=== PATIENT | female | born 1965 | race African-American/Black ===

== ENCOUNTER 2017-02-25 19:07 | Emergency (ER) | payer BC, SELFPAY ==
[2017-02-25] MEDS ORDERED: Ketorolac Tromethamine 30 MG/ML VIAL ONE (19:21)
== END 2017-02-25 19:40 | disposition home or self-care (01) ==
LOC: ERS 19:07
DX: G89.29 Other chronic pain (principal); M25.562 Pain in left knee; E78.5 Hyperlipidemia, unspecified; I10 Essential (primary) hypertension
CPT/HCPCS: 96372; J1885

== ENCOUNTER 2017-12-25 14:09 | Outpatient (CLI) | payer BC | END 2017-12-25 14:10 | disposition home or self-care (01) | LOC: BICMAMMO 14:09 | PROVIDERS: ATTEND Family Medicine | DX: Z12.31 Encounter for screening mammogram for malignant neoplasm of breast (principal); R92.1 Mammographic calcification found on diagnostic imaging of breast | CPT/HCPCS: 77063; 77067 ==

== ENCOUNTER 2018-07-30 06:13 | Emergency (ER) | payer BC ==
[2018-07-30] MEDS ORDERED: Dexamethasone 10 MG/ML VIAL ONE (06:39)
== END 2018-07-30 07:05 | disposition home or self-care (01) ==
LOC: ERS 06:13
DX: J11.1 Influenza due to unidentified influenza virus with other respiratory manifestations (principal); E78.5 Hyperlipidemia, unspecified; I10 Essential (primary) hypertension; E11.9 Type 2 diabetes mellitus without complications; Z79.899 Other long term (current) drug therapy; Z79.84 Long term (current) use of oral hypoglycemic drugs
CPT/HCPCS: 99283; J1100

== ENCOUNTER 2018-08-05 03:31 | Emergency (ER) | payer BC ==
[2018-08-05] MEDS ORDERED: Acetaminophen 500 MG TAB ONE (04:44)
[2018-08-05] MEDS ORDERED: Dexamethasone 10 MG/ML VIAL ONE (05:07)
--- NOTE | 2018-08-05 07:38 | RAD ---
CHEST 2 VIEWS: INDICATION: Cough, congestion, and sore throat. COMPARISON: Prior exam dated 09/19/2012. FINDINGS: Lungs are clear. Heart size is upper limits of normal. There is multilevel spondylosis of the thora cic spine. IMPRESSION: No acute cardiopulmonary abnormality. POS: BH
== END 2018-08-05 05:07 | disposition home or self-care (01) ==
LOC: ERS 03:31
DX: J11.1 Influenza due to unidentified influenza virus with other respiratory manifestations (principal); E78.5 Hyperlipidemia, unspecified; I10 Essential (primary) hypertension; Z79.84 Long term (current) use of oral hypoglycemic drugs; Z79.899 Other long term (current) drug therapy
CPT/HCPCS: 36416; 71046; 87081; 87430; J1100

== ENCOUNTER 2020-05-21 10:25 | Emergency (ER) | payer BC ==
--- NOTE | 2020-05-21 12:31 | ULT ---
Right lower extremity venous Doppler ultrasound 05/21/2020 COMPARISON: None HISTORY: Pain, swelling, edema TECHNIQUE: Multiplanar grayscale sonographic imaging venous structures right lower extremity obtained with color flow and spectral analysis FINDINGS: Right common femoral vein, greater saphenous vein, profunda femoral vein, femoral vein, pop liteal vein, and posterior tibial vein are patent. Normal blood flow, augmentation, and compression within the deep venous system. No evidence for DVT. IMPRESSION: No evidence for deep venous thrombosis of the right lower extremity.
== END 2020-05-21 13:27 | disposition home or self-care (01) ==
LOC: ERS 10:25
DX: M79.661 Pain in right lower leg (principal); E11.9 Type 2 diabetes mellitus without complications; I10 Essential (primary) hypertension; E78.5 Hyperlipidemia, unspecified

== ENCOUNTER 2020-06-08 07:49 | Emergency (ER) | payer BC, SELFPAY ==
[2020-06-08] MEDS ORDERED: Ketorolac Tromethamine 30 MG/ML VIAL ONE (08:31)
--- NOTE | 2020-06-08 08:38 | RAD ---
4 views of the right knee: 06/08/2020 COMPARISON: None HISTORY: Right knee pain for 3-4 weeks FINDINGS: Mild medial compartment narrowing. No displaced fracture or dislocation. There is enthesophyte formation at the insertion of the quadric eps tendon. No knee joint effusion. IMPRESSION: Degenerative change. No acute fracture or dislocation.
== END 2020-06-08 08:49 | disposition home or self-care (01) ==
LOC: ERS 07:49
DX: M25.561 Pain in right knee (principal); E78.5 Hyperlipidemia, unspecified; I10 Essential (primary) hypertension; Z79.899 Other long term (current) drug therapy
CPT/HCPCS: 96372; J1885

== ENCOUNTER 2020-06-12 06:54 | Emergency (ER) | payer SELFPAY ==
[2020-06-12] MEDS ORDERED: Acetaminophen 500 MG TAB ONE (07:14)
--- NOTE | 2020-06-12 07:42 | RAD ---
EXAM: XR Chest 1 View Portable PROVIDED CLINICAL HISTORY: Chest pain COMPARISON: 09/19/2012 FINDINGS: Cardiac and mediastinal silhouette is within normal limits for portable technique. Patchy bilateral a irspace disease in the left mid and right lower lung zones. No pleural fluid or pneumothorax apparent. IMPRESSION: Bilateral airspace disease. Correlate for pneumonia.
[2020-06-12 08:06] LABS: #Lymphocytes 0.8 thou/uL (1.20-3.40); #Monocytes 0.2 thou/uL (0.11-0.59); #Neutrophils 3.8 thou/uL (1.40-6.50); %Basophils 0.3 % (0.0-1.0); %Eosinophils 0.1 % (0.0-10.0); %Lymphocytes 16.1 % (21.0-51.0); %Monocytes 4.3 % (0.0-10.0); %Neutrophils 79.2 % (42.0-75.0); Hemoglobin 12.7 g/dL (12.0-16.0); Mean Corpuscular HGB CONC 32.7 g/dL (32.0-36.0); Mean Corpuscular Hemoglobin 26.7 pg (27.0-31.0); Mean Corpuscular Volume 81.7 fL (78.0-98.0); Mean Platelet Volume 8.7 fL (7.4-10.4); Platelet Count 159 thou/uL (130-400); RBC Distribution Width 12.7 % (11.5-14.5); Red Blood Cell (RBC) Count 4.75 mill/uL (4.20-5.40); White Blood Cell (WBC) Count 4.7 thou/uL (4.8-10.8)
[2020-06-12] MEDS ORDERED: cefTRIAXone\\ROCEPHIN 2 GM VIAL ONE (08:06)
[2020-06-12 08:16] LABS: ALT (SGPT) 33 U/L (8-55); AST (SGOT) 54 U/L (5-34); Albumin 4.1 g/dL (3.5-5.0); Alkaline Phosphatase 58 U/L (40-110); Anion Gap 16 mmol/L (10-20); BUN (Urea Nitrogen) 9 mg/dL (9.8-20.1); Bilirubin, Total 0.4 mg/dL (0.2-1.2); Calc. Creatinine Clearance 0 mL/min (70-130); Calcium 8.9 mg/dL (7.8-10.44); Carbon Dioxide 26 mmol/L (22-29); Chloride 100 mmol/L (98-107); Glucose 116 mg/dL (70-105); Lipase 17 U/L (8-78); Potassium 3.2 mmol/L (3.5-5.1); Protein, Total 8.1 g/dL (6.0-8.3); Sodium 139 mmol/L (136-145)
--- NOTE | 2020-06-12 08:27 | CT ---
EXAM: CT pulmonary angiogram with IV contrast and 3-D MIP reconstructions PROVIDED CLINICAL HISTORY: Chest pain COMPARISON: None FINDINGS: There is no evidence for central or segmental pulmonary embolus. Extensive patchy bilateral groundglass opacity with associated interstitial thickening, predominating at the periphery of the lung parenchyma. No pleural fluid or pneumothorax apparent. No evidence for thoracic lymph node enlargement. The airway appears patent and of normal caliber. The visualized portions of the upper abdomen demonstrate no acute findings. The osseous structures demonstrate no concerning lytic or blastic lesions. IMPRESSION: 1. No evidence for central or segmental pulmonary embolus. 2. Pulmonary parenchymal findings typical but not specific for Covid pneumonia.
[2020-06-12] MEDS ORDERED: Azithromycin 500 MG VIAL ONE (08:38)
[2020-06-12] MEDS ORDERED: Iopamidol-370 76% 500 ML 1 ML ONE (12:11)
[2020-06-12 17:53] LABS: SARS-CoV-2 PCR by NAA DETECTED (NotDetected)
== END 2020-06-12 10:24 | disposition home or self-care (01) ==
LOC: ERS 06:54
DX: U07.1 COVID-19 (principal); J12.82 Pneumonia due to coronavirus disease 2019; E78.5 Hyperlipidemia, unspecified; I10 Essential (primary) hypertension; Z79.899 Other long term (current) drug therapy
CPT/HCPCS: 36415; 71045; 71275; 80053; 83605; 83690; 84484; 85025; 87040; 87635; 93005; 96365; 96367; J0456; J0696; Q9967; U0003; U0005

== ENCOUNTER 2020-06-12 20:57 | Inpatient (IN) | payer SELFPAY ==
[2020-06-12] MEDS ORDERED: Acetaminophen 500 MG TAB ONE (21:18)
[2020-06-12] MEDS ORDERED: Ondansetron PF 4 MG/2 ML Vial ONE (21:18)
--- NOTE | 2020-06-12 21:33 | RAD ---
Exam: Chest one view HISTORY:Dyspnea Comparison: 06/12/2020 FINDINGS: Cardiac silhouette: Normal Aorta: Unremarkable Pulmonary vessels: Normal Costophrenic angles: Clear LUNGS: Reveal demonstration multi lobar interstitial and alveolar opacities Pneumothorax: None Osseous abnormalities: None IMPRESSION: No significant interval change. Multi lobar interstitial and alveolar opacities. Correlat e for multi lobar COVID pneumonia
[2020-06-12 21:50] LABS: #Lymphocytes 0.8 thou/uL (1.20-3.40); #Monocytes 0.1 thou/uL (0.11-0.59); #Neutrophils 4.3 thou/uL (1.40-6.50); %Basophils 0.2 % (0.0-1.0); %Lymphocytes 14.5 % (21.0-51.0); %Monocytes 2.5 % (0.0-10.0); %Neutrophils 82.8 % (42.0-75.0); Hemoglobin 11.3 g/dL (12.0-16.0); Mean Corpuscular HGB CONC 32.6 g/dL (32.0-36.0); Mean Corpuscular Hemoglobin 26.3 pg (27.0-31.0); Mean Corpuscular Volume 80.7 fL (78.0-98.0); Mean Platelet Volume 8.5 fL (7.4-10.4); Platelet Count 162 thou/uL (130-400); RBC Distribution Width 12.6 % (11.5-14.5); Red Blood Cell (RBC) Count 4.28 mill/uL (4.20-5.40); White Blood Cell (WBC) Count 5.2 thou/uL (4.8-10.8)
[2020-06-12] MEDS ORDERED: cefTRIAXone\\ROCEPHIN 1 GM VIAL ONE (21:58)
[2020-06-12] MEDS ORDERED: Dexamethasone 10 MG/ML VIAL ONE (21:58)
[2020-06-12] MEDS ORDERED: Albuterol 200 PUFF (6.7GM INHALER) ONE (21:58)
[2020-06-12 22:44] LABS: Albumin 3.9 g/dL (3.5-5.0)
[2020-06-12 22:45] LABS: Chloride 101 mmol/L (98-107); Sodium 138 mmol/L (136-145)
[2020-06-12 22:46] LABS: Calcium 8.4 mg/dL (7.8-10.44); Globulin 3.6 g/dL (2.4-3.5); Glucose 125 mg/dL (70-105); Protein, Total 7.5 g/dL (6.0-8.3)
[2020-06-12 22:48] LABS: Anion Gap 15 mmol/L (10-20); Bilirubin, Total 0.4 mg/dL (0.2-1.2); Carbon Dioxide 25 mmol/L (22-29)
[2020-06-12 22:49] LABS: Alkaline Phosphatase 56 U/L (40-110)
[2020-06-12 22:50] LABS: BUN (Urea Nitrogen) 9 mg/dL (9.8-20.1); Calc. Creatinine Clearance 0 mL/min (70-130)
[2020-06-12 22:51] LABS: AST (SGOT) 57 U/L (5-34)
[2020-06-12 22:52] LABS: ALT (SGPT) 35 U/L (8-55)
[2020-06-13] MEDS ORDERED: Potassium Chloride 20 MEQ TAB ONE (00:05)
--- NOTE | 2020-06-13 01:53 | PDOC.HHP ---
Hospitalist HPI Weakness, fever History of Present Illness: This is a 55-year-old female patient with a history of hypertension hyper lipidemia who presents on account of cough nausea and shortness of breath. She notes having been unwell for the past several days with coughpresented earlier for evaluation. She was assessed and noted to have Covid however did not meet criteria for admission. She was sent home however while at home she became more weak and feverishleading her to present again for further evaluation. On presentation her blood pressure was 168/78, pulse 116, respiratory 26, temperature 103.5 and saturating at 87 on room air. Labs showed WBC 5.2, hemoglobin Chest x-ray showed multilobar interstitial and alveolar opacities consistent with Covid pneumonia. She received 40 mEq potassium chloride, albuterol sulfate inhalation, dexamethasone 10 mg, ceftriaxone and Tylenol. Hospitalist team was then consulted for admission. Allergies/Adverse Reactions: Allergy/AdvReac Type Severity Reaction Status Date / Time No Known Drug Allergies Allergy Verified 06/13/20 04:41 Home Medications: Medication Instructions Recorded Confirmed Type Atorvastatin Calcium [Lipitor] 5 mg PO DAILY 06/13/20 06/13/20 History Losartan [Cozaar] 10 mg PO DAILY 06/13/20 06/13/20 History amLODIPine Besylate [Norvasc] 10 mg PO HS 06/13/20 06/13/20 History Past History: PMH: hypertension, hyperlipidemia Past surgical history: Hysterectomy Family history: None of significance Social history: Patient drink socially, no tobacco or illicit drug use. She lives with family Hospitalist [facility] Constitutional: reports: fever, weakness, malaise. denies: chills, sweats Respiratory: reports: cough, shortness of breath, SOB with excertion. denies: hemoptysis Cardiovascular: denies: chest pain, palpitations, orthopnea Gastrointestinal: denies: nausea, vomiting, abdominal pain Genitourinary: denies: dysuria, frequency, incontinence Neurological: denies: weakness, numbness, incoordination All other systems reviewed; all pertinent +/- noted in HPI/Subj Hospitalist Exam General Appearance: awake alert General - other findings: In no acute distress Eye: PERRL, anicteric sclera Neck: supple Heart: RRR, no murmur, no gallops, no rubs Respiratory: tachypneic Respiratory - other findings: Bilateral coarse breath sounds and occasional wheezing Gastrointestinal: soft, non-tender, non-distended, normal bowel sounds Extremities: no cyanosis, no clubbing, no edema Neurological: cranial nerve grossly intact, no weakness, no focal deficits Musculoskeletal: normal tone, normal strength Psychiatric: normal affect, normal behavior, A&O x 3 Hospitalist Results Result Diagrams: 06/13/20 06:00 06/13/20 06:00 Lab results: Laboratory Last Values WBC 5.2 thou/uL (4.8-10.8) 06/12/20 21: RBC 4.28 mill/uL (4.20-5.40) 06/12/20 21: Hgb 11.3 g/dL (12.0-16.0) L 06/12/20: Hct 34.5 % (36.0-47.0) L 06/12/20 21: MCV 80.7 fL (78.0-98.0) 06/12/20: MCH 26.3 pg (27.0-31.0) L 06/12/20 21: MCHC 32.6 g/dL (32.0-36.0) 06/12/20: RDW 12.6 % (11.5-14.5) 06/12/20: Plt Count 162 thou/uL (130-400) 06/12/20 21: MPV 8.5 fL (7.4-10.4) 06/12/20 21: Neutrophils % 82.8 % (42.0-75.0) H 06/12/20 21: Lymphocytes % 14.5 % (21.0-51.0) L 06/12/20 21: Monocytes % 2.5 % (0.0-10.0) 06/12/20: Eosinophils % 0.0 % (0.0-10.0) 06/12/20: Basophils % 0.2 % (0.0-1.0) 06/12/20 21: Neutrophils # 4.3 thou/uL (1.40-6.50) 06/12/20 21: Lymphocytes # 0.8 thou/uL (1.20-3.40) L 06/12/20 21:21 Monocytes # 0.1 thou/uL (0.11-0.59) L 06/12/20 21:21 Eosinophils # 0.0 thou/uL (0.0-0.7) 06/12/20 21:21 Basophils # 0.0 thou/uL (0.0-0.2) 06/12/20 21:21 Sodium 138 mmol/L (136-145) 06/12/20 21:21 Potassium 3.0 mmol/L (3.5-5.1) L 06/12/20 21:21 Chloride 101 mmol/L (98-107) 06/12/20 21:21 Carbon Dioxide 25 mmol/L (22-29) 06/12/20 21:21 Anion Gap 15 mmol/L (10-20) 06/12/20 21:21 BUN 9 mg/dL (9.8-20.1) L 06/12/20 21:21 Creatinine 0.82 mg/dL (0.6-1.1) 06/12/20 21:21 Estimated GFR (MDRD) 88 06/12/20 21:21 Glucose 125 mg/dL (70-105) H 06/12/20 21:21 Lactic Acid 1.3 mmol/L (0.5-2.2) 06/12/20 21:21 Calcium 8.4 mg/dL (7.8-10.44) 06/12/20 21:21 Total Bilirubin 0.4 mg/dL (0.2-1.2) 06/12/20 21:21 AST 57 U/L (5-34) H 06/12/20 21:21 ALT 35 U/L (8-55) 06/12/20 21:21 Alkaline Phosphatase 56 U/L (40-110) 06/12/20 21:21 Serum Total Protein 7.5 g/dL (6.0-8.3) 06/12/20 21:21 Albumin 3.9 g/dL (3.5-5.0) 06/12/20 21:21 Globulin 3.6 g/dL (2.4-3.5) H 06/12/20 21:21 Albumin/Globulin Ratio 1.1 g/dL (1.2-2.2) L 06/12/20 21:21 Hospitalist H&P A/P Plan: This is a 55-year-old female patient history of hypertension who presents with general malaise worsening shortness of breath and tested positive for Covid. Acute hypoxic respiratory failure This likely due to Covid pneumonia As needed oxygen Monitor Pneumonia due to Covid We will start vitamins/steroids Check CRP, ferritin and D-dimer. Remdesivirpharmacy Monitor. Hypokalemia Potassium 3.0replaced We will check magnesium Anemia, normocytic This is mild at 11.3 We will monitor CBC VT prophylaxisLovenox CODE STATUSfull
[2020-06-13] MEDS ORDERED: Potassium Chloride 20 MEQ TAB PO SCH (02:00)
[2020-06-13 05:03] VITALS: BMI 39.0
[2020-06-13] MEDS ORDERED: Pharmacy to Dose REMDESIVIR IVPB PRN (05:25)
[2020-06-13 06:16] LABS: #Lymphocytes 0.5 thou/uL (1.20-3.40); #Monocytes 0.1 thou/uL (0.11-0.59); #Neutrophils 3.6 thou/uL (1.40-6.50); %Eosinophils 0.1 % (0.0-10.0); %Monocytes 1.9 % (0.0-10.0); %Neutrophils 86.1 % (42.0-75.0); Hemoglobin 11.7 g/dL (12.0-16.0); Mean Corpuscular HGB CONC 32.6 g/dL (32.0-36.0); Mean Corpuscular Hemoglobin 26.9 pg (27.0-31.0); Mean Corpuscular Volume 82.4 fL (78.0-98.0); Mean Platelet Volume 8.1 fL (7.4-10.4); Platelet Count 146 thou/uL (130-400); RBC Distribution Width 12.9 % (11.5-14.5); Red Blood Cell (RBC) Count 4.35 mill/uL (4.20-5.40); White Blood Cell (WBC) Count 4.2 thou/uL (4.8-10.8)
[2020-06-13 06:36] LABS: Anion Gap 18 mmol/L (10-20); BUN (Urea Nitrogen) 6 mg/dL (9.8-20.1); Calc. Creatinine Clearance 135 mL/min (70-130); Calcium 8.6 mg/dL (7.8-10.44); Carbon Dioxide 20 mmol/L (22-29); Chloride 106 mmol/L (98-107); Glucose 153 mg/dL (70-105); Potassium 4.3 mmol/L (3.5-5.1); Sodium 140 mmol/L (136-145)
[2020-06-13] MEDS: Ascorbic Acid 500 mg Chewable Tablet PO SCH (08:44)
[2020-06-13] MEDS: guaiFENesin/Codeine 200 mg/20 mg 10 ml Cup PO PRN ×2 (08:44→14:05)
[2020-06-13] MEDS: Zinc Sulfate 220 MG CAP PO SCH (08:44)
[2020-06-13] MEDS: Dexamethasone 4 mg/ml Vial SLOW IVP SCH (08:44)
[2020-06-13] MEDS: Cholecalciferol (Vitamin D3) 400 UNITS TAB PO SCH (08:44)
[2020-06-13] MEDS: Enoxaparin Sodium 40 MG/0.4 ML SYRINGE SC SCH (08:44)
[2020-06-13] MEDS: Benzonatate 100 MG CAP PO SCH ×3 (08:44→20:03)
[2020-06-13] MEDS: guaiFENesin/DM ER PO SCH ×2 (08:44→20:03)
--- NOTE | 2020-06-13 13:07 | PDOC.HOSPP ---
- Subjective Encounter Date: 06/13/20 Encounter Time: 10:50 Subjective: had dry coughing spells, no fever this morning is amb in room had 3 episodes of diarrhea yesterday, no nausea her symptoms started on sun and she came back +ve on 06/12 she lives alone, does not go out to work - Objective Vital Signs & Weight: Vital Signs (12 hours) Temp Pulse Resp BP Pulse Ox 06/13/20 07:00 97.8 F 74 20 118/79 99 06/13/20 05:48 98 F 86 18 110/72 96 06/13/20 01:35 97.5 F L 82 18 112/72 99 Weight Weight 213 lb 8 oz Result Diagrams: 06/13/20 06:00 06/13/20 06:00 Hospitalist ROS - Medication Medications: Active Medications Generic Name Dose Route Start Last Admin Trade Name Freq PRN Reason Stop Dose Admin Ascorbic Acid 1,000 mg 06/13/20 09:00 06/13/20 08:44 Ascorbic Acid 500 Mg Chewable Tablet PO 1,000 mg DAILY BASIM Administration Benzonatate 100 mg 06/13/20 09:00 06/13/20 08:44 Benzonatate 100 Mg Cap PO 100 mg TID BASIM Administration Cholecalciferol 400 units 06/13/20 09:00 06/13/20 08:44 Cholecalciferol (Vitamin D3) 400 Units Tab PO 400 units DAILY BASIM Administration Dexamethasone 6 mg 06/13/20 09:00 06/13/20 08:44 Dexamethasone 4 Mg/Ml Vial SLOW IVP 6 mg DAILY BASIM Administration Enoxaparin Sodium 40 mg 06/13/20 09:00 06/13/20 08:44 Enoxaparin Sodium 40 Mg/0.4 Ml Syringe SC 40 mg 0900 BASIM Administration Guaifenesin/Codeine Phosphate 10 ml 06/13/20 08:06 06/13/20 08:44 Guaifenesin/Codeine 200 Mg/20 Mg 10 Ml Cup PO 10 ml Q6H PRN Administration Cough Guaifenesin/Dextromethorphan 1 tab 06/13/20 09:00 06/13/20 08:44 Guaifenesin/Dm Er PO 1 tab Q12HR BASIM Administration Pantoprazole Sodium 40 mg 06/13/20 09:00 06/13/20 08:44 Pantoprazole 40 Mg Tab PO 40 mg DAILY BASIM Administration Sodium Chloride 10 ml 06/13/20 09:00 06/13/20 08:45 Flush - Normal Saline 10 Ml Syringe IVF 10 ml Q12HR BASIM Administration Zinc Sulfate 220 mg 06/13/20 09:00 06/13/20 08:44 Zinc Sulfate 220 Mg Cap PO 220 mg DAILY BASIM Administration Hospitalist Exam Vitals: Vital Signs (12 hours) Temp Pulse Resp BP Pulse Ox 06/13/20 07:00 97.8 F 74 20 118/79 99 06/13/20 05:48 98 F 86 18 110/72 96 06/13/20 01:35 97.5 F L 82 18 112/72 99 Weight Weight 213 lb 8 oz General Appearance: awake alert Eye: PERRL, anicteric sclera ENT: no oropharyngeal lesions, moist mucosa Neck: supple, no JVD Heart: RRR, no murmur Respiratory: no wheezes, no rales, rhonchi Gastrointestinal: soft, non-tender, non-distended, normal bowel sounds Extremities: no cyanosis, no edema Neurological: cranial nerve grossly intact, no focal deficits Psychiatric: normal affect, A&O x 3 Hosp A/P (1) Pneumonia due to COVID-19 virus Code(s): U07.1 - COVID-19; J12.82 - PNEUMONIA DUE TO CORONAVIRUS DISEASE 2019 Status: Acute (2) Acute respiratory failure with hypoxia Code(s): J96.01 - ACUTE RESPIRATORY FAILURE WITH HYPOXIA Status: Acute (3) Obesity (BMI 30-39.9) Code(s): E66.9 - OBESITY, UNSPECIFIED Status: Chronic (4) HTN (hypertension) Code(s): I10 - ESSENTIAL (PRIMARY) HYPERTENSION Status: Chronic Qualifiers: Hypertension type: essential hypertension Qualified Code(s): I10 - Essential (primary) hypertension (5) Dyslipidemia Code(s): E78.5 - HYPERLIPIDEMIA, UNSPECIFIED Status: Chronic - Plan is on dexamethasone, awaiting remdesivir approval from pharmacy, alb inh, mucinex and tessalon protonix, encourage po intake counselled to lay to lateral sides or prone while on bed d/w her daughter [phone] per patient request. hemostable to ambulate as tolerated in the room
[2020-06-13] MEDS: Ipratropium/Albuterol Sulfate 4 GM AER IH SCH ×2 (13:50→20:03)
[2020-06-13] MEDS ORDERED: Melatonin 3 MG TAB PO SCH (21:30)
[2020-06-13] MEDS ORDERED: REMDESIVIR (EUA) 200 MG in Sodium Chloride 0.9% 250 ML 210 ML IV SCH (21:30)
[2020-06-14] MEDS: Ipratropium/Albuterol Sulfate 4 GM AER IH SCH ×4 (02:05→18:21)
[2020-06-14] MEDS: guaiFENesin/Codeine 200 mg/20 mg 10 ml Cup PO PRN ×2 (05:51→13:35)
[2020-06-14] MEDS: Acetaminophen 325 MG TAB PO PRN (06:20)
[2020-06-14] MEDS: Ascorbic Acid 500 mg Chewable Tablet PO SCH (09:17)
[2020-06-14] MEDS: Zinc Sulfate 220 MG CAP PO SCH (09:17)
[2020-06-14] MEDS: Cholecalciferol (Vitamin D3) 400 UNITS TAB PO SCH (09:17)
[2020-06-14] MEDS: Dexamethasone 4 mg/ml Vial SLOW IVP SCH (09:18)
[2020-06-14] MEDS: Benzonatate 100 MG CAP PO SCH ×3 (09:18→20:33)
[2020-06-14] MEDS: Enoxaparin Sodium 40 MG/0.4 ML SYRINGE SC SCH (09:19)
[2020-06-14] MEDS: guaiFENesin/DM ER PO SCH ×2 (09:19→20:33)
--- NOTE | 2020-06-14 16:30 | PDOC.HOSPP ---
- Subjective Encounter Date: 06/14/20 Encounter Time: 08:00 Subjective: F/u: COVId The patient still spiked a fever today. She still reports pain in her right side worst when she coughs. She is still short of breath some. The patient is on 2L oxygen saturating at 98%. - Objective Vital Signs & Weight: Vital Signs (12 hours) Temp Pulse Resp BP Pulse Ox 06/14/20 12:09 99.3 F 93 26 H 125/79 98 06/14/20 12:00 98 06/14/20 08:15 100.4 F H 106 H 20 103/66 100 06/14/20 08:00 100 06/14/20 06:20 101.1 F H 107 H 22 H Weight Weight 213 lb 8 oz Result Diagrams: 06/13/20 06:00 06/13/20 06:00 Hospitalist ROS - Review of Systems Constitutional: denies: fever, chills - Medication Medications: Active Medications Generic Name Dose Route Start Last Admin Trade Name Freq PRN Reason Stop Dose Admin Acetaminophen 650 mg 06/14/20 06:17 06/14/20 06:20 Acetaminophen 325 Mg Tab PO 650 mg Q4H PRN Administration Fever/Pain Albuterol/Ipratropium 0 gm 06/13/20 13:00 06/14/20 13:47 Ipratropium/Albuterol Sulfate 4 Gm Aer IH 1 puff [id number] BASIM Administration Ascorbic Acid 1,000 mg 06/13/20 09:00 06/14/20 09:17 Ascorbic Acid 500 Mg Chewable Tablet PO 1,000 mg DAILY BASIM Administration Benzonatate 100 mg 06/13/20 09:00 06/14/20 13:35 Benzonatate 100 Mg Cap PO 100 mg TID BSAIM Administration Cholecalciferol 400 units 06/13/20 09:00 06/14/20 09:17 Cholecalciferol (Vitamin D3) 400 Units Tab PO 400 units DAILY BASIM Administration Dexamethasone 6 mg 06/13/20 09:00 06/14/20 09:18 Dexamethasone 4 Mg/Ml Vial SLOW IVP 6 mg DAILY BASIM Administration Enoxaparin Sodium 40 mg 06/13/20 09:00 06/14/20 09:19 Enoxaparin Sodium 40 Mg/0.4 Ml Syringe SC 40 mg 0900 BASIM Administration Guaifenesin/Codeine Phosphate 10 ml 06/13/20 08:06 06/14/20 13:35 Guaifenesin/Codeine 200 Mg/20 Mg 10 Ml Cup PO 10 ml Q6H PRN Administration Cough Guaifenesin/Dextromethorphan 1 tab 06/13/20 09:00 06/14/20 09:19 Guaifenesin/Dm Er PO 1 tab Q12HR BASIM Administration Pantoprazole Sodium 40 mg 06/13/20 09:00 06/14/20 09:17 Pantoprazole 40 Mg Tab PO 40 mg DAILY BASIM Administration Sodium Chloride 10 ml 06/13/20 09:00 06/14/20 09:19 Flush - Normal Saline 10 Ml Syringe IVF 10 ml Q12HR BASIM Administration Zinc Sulfate 220 mg 06/13/20 09:00 06/14/20 09:17 Zinc Sulfate 220 Mg Cap PO 220 mg DAILY BASIM Administration Hospitalist Exam Vitals: Vital Signs (12 hours) Temp Pulse Resp BP Pulse Ox 06/14/20 12:09 99.3 F 93 26 H 125/79 98 06/14/20 12:00 98 06/14/20 08:15 100.4 F H 106 H 20 103/66 100 06/14/20 08:00 100 06/14/20 06:20 101.1 F H 107 H 22 H Weight Weight 213 lb 8 oz General Appearance: NAD, awake alert Eye: PERRL, anicteric sclera ENT: normocephalic atraumatic, no oropharyngeal lesions Neck: no JVD Heart: RRR, no murmur, no gallops, no rubs Respiratory: CTAB, no wheezes, no rales, no ronchi Gastrointestinal: soft, non-tender, non-distended, normal bowel sounds Extremities: no cyanosis, no clubbing, no edema Skin: normal turgor, no lesions, no rashes Neurological: cranial nerve grossly intact, normal sensation to touch, no focal deficits, no new deficit Hosp A/P - Plan Chest X ray 05/2020 : multilobar interstitial and alveolar opacities This is a 55 year old female with hypertension who presented to the ER with cough, nausea and shortness of breath, tested postiive for COVID #Acute hypoxic respiratory failure secondary to COVID #Sepsis from COVID - patient is still on 1L of oxygen. Plan to wean off. Continue remdesivir. Continue dexamethasone - blood cultures negative, UA ordered. Hypertension - controlled - hold home medicines Hyperlipidemia - continue atorvastatin
[2020-06-14] MEDS: Atorvastatin Calcium 10 MG TAB PO SCH (20:33)
[2020-06-14] MEDS: REMDESIVIR (EUA) 100 MG in Sodium Chloride 0.9% 250 ML 230 ML IV SCH (20:34)
[2020-06-14 23:44] LABS: Bacteria/HPF None Seen HPF (None Seen); Bilirubin Negative (Negative); Blood, Urine Trace (Negative); Clarity Clear (Clear); Glucose, Urine (Dipstick) Normal (Negative); Ketone, Urine Negative (Negative); Leukocyte Negative Leu/uL (Negative); Nitrite Negative (Negative); Protein, Urine (Dipstick) 50 mg/dL (Neg-Trace); RBC/HPF 0-3 HPF (0-3); Specific Gravity, Urine 1.031 (1.002-1.036); Squamous Epithelial 0-3 HPF (0-3); Urobilinogen Normal mg/dL (Less than 2); WBC/HPF 0-3 HPF (0-3)
[2020-06-14 23:54] LABS: Urine Culture Reflex No No
[2020-06-15] MEDS: Ipratropium/Albuterol Sulfate 4 GM AER IH SCH ×4 (01:35→17:58)
[2020-06-15] MEDS: Acetaminophen 325 MG TAB PO PRN (01:43)
[2020-06-15] MEDS: guaiFENesin/Codeine 200 mg/20 mg 10 ml Cup PO PRN ×3 (01:43→20:16)
[2020-06-15] MEDS: Cholecalciferol (Vitamin D3) 400 UNITS TAB PO SCH (08:51)
[2020-06-15] MEDS: Benzonatate 100 MG CAP PO SCH ×3 (08:51→20:16)
[2020-06-15] MEDS: Zinc Sulfate 220 MG CAP PO SCH (08:51)
[2020-06-15] MEDS: Dexamethasone 4 mg/ml Vial SLOW IVP SCH (08:51)
[2020-06-15] MEDS: Enoxaparin Sodium 40 MG/0.4 ML SYRINGE SC SCH (08:52)
[2020-06-15] MEDS: guaiFENesin/DM ER PO SCH ×2 (08:53→20:16)
[2020-06-15] MEDS: Ascorbic Acid 500 mg Chewable Tablet PO SCH (08:53)
--- NOTE | 2020-06-15 16:54 | PDOC.HOSPP ---
- Subjective Encounter Date: 06/15/20 Encounter Time: 13:00 Subjective: F/u : COVID The patient still is short of breath and has some pain with coughing. Her oxygen requirement is 1-2L nasal cannula - Objective Vital Signs & Weight: Vital Signs (12 hours) Temp Pulse Resp BP Pulse Ox Pulse Ox Pulse Ox 06/15/20 14:55 93 L 85 L 06/15/20 08:00 94 L 06/15/20 07:36 98.0 F 85 20 133/84 94 L Pulse Ox 06/15/20 14:55 92 L 06/15/20 08:00 06/15/20 07:36 Weight Weight 213 lb 8 oz Result Diagrams: 06/13/20 06:00 06/13/20 06:00 Hospitalist ROS - Review of Systems Constitutional: denies: fever, chills - Medication Medications: Active Medications Generic Name Dose Route Start Last Admin Trade Name Freq PRN Reason Stop Dose Admin Acetaminophen 650 mg 06/14/20 06:17 06/15/20 01:43 Acetaminophen 325 Mg Tab PO 650 mg Q4H PRN Administration Fever/Pain Albuterol/Ipratropium 0 gm 06/13/20 13:00 06/15/20 12:47 Ipratropium/Albuterol Sulfate 4 Gm Aer IH 1 puff [id number] BASIM Administration Ascorbic Acid 1,000 mg 06/13/20 09:00 06/15/20 08:53 Ascorbic Acid 500 Mg Chewable Tablet PO 1,000 mg DAILY BASIM Administration Atorvastatin Calcium 5 mg 06/14/20 21:00 06/14/20 20:33 Atorvastatin Calcium 10 Mg Tab PO 5 mg HS BASIM Administration Benzonatate 100 mg 06/13/20 09:00 06/15/20 13:27 Benzonatate 100 Mg Cap PO 100 mg TID BASIM Administration Cholecalciferol 400 units 06/13/20 09:00 06/15/20 08:51 Cholecalciferol (Vitamin D3) 400 Units Tab PO 400 units DAILY BASIM Administration Dexamethasone 6 mg 06/13/20 09:00 06/15/20 08:51 Dexamethasone 4 Mg/Ml Vial SLOW IVP 6 mg DAILY BASIM Administration Enoxaparin Sodium 40 mg 06/13/20 09:00 06/15/20 08:52 Enoxaparin Sodium 40 Mg/0.4 Ml Syringe SC 40 mg 0900 BASIM Administration Guaifenesin/Codeine Phosphate 10 ml 06/13/20 08:06 06/15/20 13:27 Guaifenesin/Codeine 200 Mg/20 Mg 10 Ml Cup PO 10 ml Q6H PRN Administration Cough Guaifenesin/Dextromethorphan 1 tab 06/13/20 09:00 06/15/20 08:53 Guaifenesin/Dm Er PO 1 tab Q12HR BASIM Administration Remdesivir 100 mg/ Sodium 250 mls @ 250 mls/hr 06/14/20 21:00 06/14/20 20:34 Chloride IV 06/17/20 21:59 250 mls 2100 BASIM Administration Pantoprazole Sodium 40 mg 06/13/20 09:00 06/15/20 08:51 Pantoprazole 40 Mg Tab PO 40 mg DAILY BASIM Administration Sodium Chloride 10 ml 06/13/20 09:00 06/15/20 08:54 Flush - Normal Saline 10 Ml Syringe IVF 10 ml Q12HR BASIM Administration Zinc Sulfate 220 mg 06/13/20 09:00 06/15/20 08:51 Zinc Sulfate 220 Mg Cap PO 220 mg DAILY BASIM Administration Hospitalist Exam Vitals: Vital Signs (12 hours) Temp Pulse Resp BP Pulse Ox Pulse Ox Pulse Ox 06/15/20 14:55 93 L 85 L 06/15/20 08:00 94 L 06/15/20 07:36 98.0 F 85 20 133/84 94 L Pulse Ox 06/15/20 14:55 92 L 06/15/20 08:00 06/15/20 07:36 Weight Weight 213 lb 8 oz General Appearance: NAD, awake alert Eye: PERRL, anicteric sclera ENT: normocephalic atraumatic, no oropharyngeal lesions Neck: no JVD Heart: RRR, no murmur, no gallops Respiratory: no wheezes, no rales, no ronchi Respiratory - other findings: diminished breath sounds. Pt taking very shallow breaths Gastrointestinal: soft, non-tender, non-distended, normal bowel sounds Extremities: no cyanosis, no clubbing, no edema Skin: normal turgor, no lesions, no rashes Neurological: cranial nerve grossly intact, normal sensation to touch, no focal deficits, no new deficit Musculoskeletal: normal tone, normal strength, no muscle wasting Psychiatric: normal affect, normal behavior, A&O x 3 Hosp A/P - Plan Chest X ray 05/2020 : multilobar interstitial and alveolar opacities This is a 55 year old female with hypertension who presented to the ER with cough, nausea and shortness of breath, tested postiive for COVID #Acute hypoxic respiratory failure secondary to COVID #Sepsis from COVID - patient is on 1-2L of oxygen. Continue remdesivir day 2. Continue steroids. Blood cultures and UA negative, chest X ray shows multilobar pneumonia - will add mucinex Hypertension - controlled - hold home medicines Hyperlipidemia - continue atorvastatin
[2020-06-15] MEDS: REMDESIVIR (EUA) 100 MG in Sodium Chloride 0.9% 250 ML 230 ML IV SCH (20:17)
[2020-06-15] MEDS: Atorvastatin Calcium 10 MG TAB PO SCH (20:17)
[2020-06-16] MEDS: Ipratropium/Albuterol Sulfate 4 GM AER IH SCH ×4 (02:00→20:51)
[2020-06-16] MEDS: Benzonatate 100 MG CAP PO SCH ×3 (09:19→20:49)
[2020-06-16] MEDS: Dexamethasone 4 mg/ml Vial SLOW IVP SCH (09:19)
[2020-06-16] MEDS: Ascorbic Acid 500 mg Chewable Tablet PO SCH (09:19)
[2020-06-16] MEDS: Zinc Sulfate 220 MG CAP PO SCH (09:19)
[2020-06-16] MEDS: Cholecalciferol (Vitamin D3) 400 UNITS TAB PO SCH (09:19)
[2020-06-16] MEDS: guaiFENesin/DM ER PO SCH (09:19)
[2020-06-16] MEDS: Enoxaparin Sodium 40 MG/0.4 ML SYRINGE SC SCH (09:20)
[2020-06-16] MEDS: Acetaminophen 325 MG TAB PO PRN (14:23)
--- NOTE | 2020-06-16 15:51 | PDOC.HOSPP ---
- Subjective Encounter Date: 06/16/20 Subjective: F/u: COVID The patient looks better today. She is sitting up and watching TV. Still has an occasional productive cough. She has been ambulating, currently on 2L nasal ca nnula No chest pain anymore - Objective Vital Signs & Weight: Vital Signs (12 hours) Temp Pulse Resp BP Pulse Ox Pulse Ox Pulse Ox 06/16/20 14:36 93 L 94 L 06/16/20 11:52 97.7 F 76 16 145/85 H 100 06/16/20 09:00 97 06/16/20 07:25 98.3 F 93 16 160/77 H 97 Weight Weight 213 lb 8 oz Result Diagrams: 06/13/20 06:00 06/13/20 06:00 Hospitalist ROS - Review of Systems Constitutional: denies: fever, chills - Medication Medications: Active Medications Generic Name Dose Route Start Last Admin Trade Name Freq PRN Reason Stop Dose Admin Acetaminophen 650 mg 06/14/20 06:17 06/16/20 14:23 Acetaminophen 325 Mg Tab PO 650 mg Q4H PRN Administration Fever/Pain Albuterol/Ipratropium 0 gm 06/13/20 13:00 06/16/20 12:37 Ipratropium/Albuterol Sulfate 4 Gm Aer IH 1 puff [id number] BASIM Administration Ascorbic Acid 1,000 mg 06/13/20 09:00 06/16/20 09:19 Ascorbic Acid 500 Mg Chewable Tablet PO 1,000 mg DAILY BASIM Administration Atorvastatin Calcium 5 mg 06/14/20 21:00 06/15/20 20:17 Atorvastatin Calcium 10 Mg Tab PO 5 mg HS BASIM Administration Benzonatate 100 mg 06/13/20 09:00 06/16/20 14:21 Benzonatate 100 Mg Cap PO 100 mg TID BASIM Administration Cholecalciferol 400 units 06/13/20 09:00 06/16/20 09:19 Cholecalciferol (Vitamin D3) 400 Units Tab PO 400 units DAILY BASIM Administration Dexamethasone 6 mg 06/13/20 09:00 06/16/20 09:19 Dexamethasone 4 Mg/Ml Vial SLOW IVP 6 mg DAILY BASIM Administration Enoxaparin Sodium 40 mg 06/13/20 09:00 06/16/20 09:20 Enoxaparin Sodium 40 Mg/0.4 Ml Syringe SC 40 mg 0900 BASIM Administration Guaifenesin/Codeine Phosphate 10 ml 06/13/20 08:06 06/15/20 20:16 Guaifenesin/Codeine 200 Mg/20 Mg 10 Ml Cup PO 10 ml Q6H PRN Administration Cough Guaifenesin/Dextromethorphan 1 tab 06/13/20 09:00 06/16/20 09:19 Guaifenesin/Dm Er PO 1 tab Q12HR BASIM Administration Remdesivir 100 mg/ Sodium 250 mls @ 250 mls/hr 06/14/20 21:00 06/15/20 20:17 Chloride IV 06/17/20 21:59 250 mls 2100 BASIM Administration Pantoprazole Sodium 40 mg 06/13/20 09:00 06/16/20 09:19 Pantoprazole 40 Mg Tab PO 40 mg DAILY BASIM Administration Sodium Chloride 10 ml 06/13/20 09:00 06/16/20 09:20 Flush - Normal Saline 10 Ml Syringe IVF 10 ml Q12HR BASIM Administration Zinc Sulfate 220 mg 06/13/20 09:00 06/16/20 09:19 Zinc Sulfate 220 Mg Cap PO 220 mg DAILY BASIM Administration Hospitalist Exam Vitals: Vital Signs (12 hours) Temp Pulse Resp BP Pulse Ox Pulse Ox Pulse Ox 06/16/20 14:36 93 L 94 L 06/16/20 11:52 97.7 F 76 16 145/85 H 100 06/16/20 09:00 97 06/16/20 07:25 98.3 F 93 16 160/77 H 97 Weight Weight 213 lb 8 oz General Appearance: NAD, awake alert Eye: PERRL, anicteric sclera ENT: no oropharyngeal lesions Neck: supple, no JVD Heart: RRR, no murmur, no gallops Respiratory: no wheezes, no ronchi Respiratory - other findings: mild crackles at the bases Gastrointestinal: soft, non-tender, non-distended, normal bowel sounds Extremities: no cyanosis, no clubbing, no edema Skin: normal turgor, no lesions, no rashes Neurological: cranial nerve grossly intact, normal sensation to touch, no focal deficits, no new deficit Musculoskeletal: normal tone, normal strength, no muscle wasting Psychiatric: normal affect, normal behavior, A&O x 3 Hosp A/P - Plan Chest X ray 05/2020 : multilobar interstitial and alveolar opacities This is a 55 year old female with hypertension who presented to the ER with cough, nausea and shortness of breath, tested postiive for COVID #Acute hypoxic respiratory failure secondary to COVID #Sepsis from COVID - patient is on 1-2L of oxygen. Continue remdesivir day 3. Continue steroids. B lood cultures and UA negative, chest X ray shows multilobar pneumonia - continue mucinex - wean oxygen sat to maintain level of 92% Hypertension - controlled - hold home medicines Hyperlipidemia - continue atorvastatin
[2020-06-16] MEDS: REMDESIVIR (EUA) 100 MG in Sodium Chloride 0.9% 250 ML 230 ML IV SCH (20:48)
[2020-06-16] MEDS: Atorvastatin Calcium 10 MG TAB PO SCH (20:49)
[2020-06-16] MEDS: guaiFENesin ER 600 MG TAB PO SCH (20:49)
[2020-06-17] MEDS: Ipratropium/Albuterol Sulfate 4 GM AER IH SCH ×3 (01:45→12:51)
[2020-06-17] MEDS: guaiFENesin/Codeine 200 mg/20 mg 10 ml Cup PO PRN ×2 (08:18→14:58)
[2020-06-17] MEDS: Benzonatate 100 MG CAP PO SCH ×2 (08:18→14:58)
[2020-06-17] MEDS: Cholecalciferol (Vitamin D3) 400 UNITS TAB PO SCH (08:18)
[2020-06-17] MEDS: guaiFENesin ER 600 MG TAB PO SCH (08:18)
[2020-06-17] MEDS: Ascorbic Acid 500 mg Chewable Tablet PO SCH (08:18)
[2020-06-17] MEDS: Zinc Sulfate 220 MG CAP PO SCH (08:19)
[2020-06-17] MEDS: Acetaminophen 325 MG TAB PO PRN (08:19)
[2020-06-17] MEDS: Enoxaparin Sodium 40 MG/0.4 ML SYRINGE SC SCH (08:19)
[2020-06-17] MEDS: Dexamethasone 4 mg/ml Vial SLOW IVP SCH (08:19)
[2020-06-17 09:59] LABS: Anion Gap 13 mmol/L (10-20); BUN (Urea Nitrogen) 16 mg/dL (9.8-20.1); Calc. Creatinine Clearance 139 mL/min (70-130); Calcium 8.8 mg/dL (7.8-10.44); Carbon Dioxide 27 mmol/L (22-29); Chloride 102 mmol/L (98-107); Glucose 178 mg/dL (70-105); Potassium 3.7 mmol/L (3.5-5.1); Sodium 138 mmol/L (136-145)
[2020-06-17 10:54] LABS: Band 7 % (5-11); Hemoglobin 12.5 g/dL (12.0-16.0); Lymphocytes 22 % (21-51); MDiff Complete? YES; Mean Corpuscular HGB CONC 32.2 g/dL (32.0-36.0); Mean Corpuscular Hemoglobin 26.7 pg (27.0-31.0); Mean Platelet Volume 7.4 fL (7.4-10.4); Monocytes 7 % (0-10); Neutrophil 60 % (42-75); Platelet Count 344 thou/uL (130-400); RBC Distribution Width 12.9 % (11.5-14.5); RBC Morphology Normal; Reactive Lymphocytes 4 % (0-10); Red Blood Cell (RBC) Count 4.67 mill/uL (4.20-5.40); White Blood Cell (WBC) Count 5.5 thou/uL (4.8-10.8)
[2020-06-17 11:03] VITALS: BP 140/85; TEMP 98
--- NOTE | 2020-06-17 17:52 | PDOC.DS.DS ---
Provider Date of Admission: 06/13/20 00:09 Date of Discharge: 06/17/20 Admitting Provider: Leandro Santa MD Primary Care Physician: Nino Leroy MD Course Hospital Course: Discharge Diagnoses: 1. Acute hypoxic respiratory failure secondary to COVID pneumonia Brief HPI: This is a 55 year old female with past medical history of hypertension, hyperlipidemia, diabetes who presented with 4 days of productive cough and vomiting. She reported severe rib pain with coughing, was discharged two days from the ER with azithromycin. She had a fever of 103.5, HR of 116 and oxygen sat 87% on room air. Hospital Course: Acute hypoxic respiratory failure secondary to COVID pneumonia: the patient was started on IV dexamethasone. She was also started on remdesivir. She received three days of remdesivir. On the day of discharge, her cough had improved. She had no chest pain. She ambulated and did not desaturate. She denied shortness of breath. She will be discharged home and can repeat a chest Xray in 6 weeks. Resuscitation Status: 06/13/20 01:48 Resuscitation Status Routine Resuscitation Status: FULL: Full Resuscitation Lab Results: 06/17/20 09:20 06/17/20 09:20 Abnormal Lab Results - Last 48 hrs 06/17/20 09:20: MCH 26.7 L Microbiology - Entire Visit 06/12/20 21:21 Venous blood - Right Arm Blood Culture - Preliminary NO GROWTH AT 48 HOURS 06/12/20 21:22 Venous blood - Left Arm Blood Culture - Preliminary NO GROWTH AT 48 HOURS Vitals: Vital Signs (12 hours) Temp Pulse Resp BP Pulse Ox Pulse Ox Pulse Ox 06/17/20 15:52 96 99 06/17/20 15:11 95 06/17/20 11:02 98.0 F 70 20 140/85 98 06/17/20 07:34 97.8 F 70 20 140/83 99 Weight Weight 213 lb 8 oz Physical Exam: The patient was seen and examined on the day of discharge. General Appearance: NAD, awake alert Eye: PERRL, anicteric sclera ENT: normocephalic atraumatic, no oropharyngeal lesions Neck: no JVD Respiratory: CTAB, no wheezes, no rales, no ronchi Cardiovascular: RRR, no murmur, no gallops, no rubs Gastrointestinal: soft, non-tender, non-distended, normal bowel sounds Extremities: no cyanosis, no clubbing, no edema Skin: normal turgor, no lesions, no rashes Neurological: cranial nerve grossly intact, normal sensation to touch, no focal deficits, no new deficit Musculoskeletal: normal tone, normal strength, no muscle wasting PSYCH: normal affect, normal behavior, A&O x 3, oriented to person Problem Time Spent in discharge related activities (mins): 30 Plan Prescriptions: guaiFENesin ER [Mucinex] 600 mg PO Q12HR PRN #14 tab PRN Reason: Cough Home Medications: Medication Instructions Recorded Confirmed Type Atorvastatin Calcium [Lipitor] 5 mg PO DAILY 06/13/20 06/13/20 History Losartan [Cozaar] 10 mg PO DAILY 06/13/20 06/13/20 History amLODIPine Besylate [Norvasc] 10 mg PO HS 06/13/20 06/13/20 History guaiFENesin ER [Mucinex] 600 mg PO Q12HR PRN #14 tab 06/17/20 Rx Allergies: No Known Drug Allergies Allergy (Verified 06/13/20 04:41) Discharge Instructions:: You presented with COVID. You received IV antivirals for a few days. You were weaned off oxygen. You can go home, but quarantine for five more days, and if you want to be extra safe, quarantine for nine more days. Get a repeat chest Xray in 6 weeks and followup with your PCP in one week . YOUR PRESCRIPTIONS WERE SENT TO: [facility] [address], [place] [id number] Activity:: Activity as Tolerated Nourishment:: Regular Diet Referrals: Nino Leroy Chi, MD [Primary Care Provider] - Disposition: HOME Quality CORE MEASURES:: N/A
--- NOTE | 2020-06-19 10:05 | EKG ---
Test Reason : Blood Pressure : / mmHG Vent. Rate : 106 BPM Atrial Rate : 106 BPM P-R Int : 142 ms QRS Dur : 076 ms QT Int : 308 ms P-R-T Axes : 030 012 -13 degrees QTc Int : 409 ms Sinus tachycardia Nonspecific T wave abnormality Abnormal ECG Confirmed by FAITH BRADSHAW DO ([id number]), video editor RAY CARLIN ([id number]) on 06/19/2020 10:04:55 AM Referred By: Confirmed By:FAITH BRADSHAW DO
== END 2020-06-17 18:15 | disposition home or self-care (01) | DRG 871 ==
LOC: ERS 20:57 → T4-A 06-13 00:09
PROVIDERS: ADMIT Student in an Organized Health Care Education/Training Program; ATTEND Internal Medicine
PROC: 8E0ZXY6 Isolation (ICD-10-PCS; principal; 2020-06-13)
PROC: XW033E5 Introduction of Remdesivir Anti-infective into Peripheral Vein, Percutaneous Approach, New Technology Group 5 (ICD-10-PCS; 2020-06-13)
DX: A41.89 Other specified sepsis (principal); U07.1 COVID-19; J12.82 Pneumonia due to coronavirus disease 2019; J96.01 Acute respiratory failure with hypoxia; E78.5 Hyperlipidemia, unspecified; I10 Essential (primary) hypertension; D64.9 Anemia, unspecified; E87.6 Hypokalemia; E66.9 Obesity, unspecified; Z90.710 Acquired absence of both cervix and uterus; Z79.899 Other long term (current) drug therapy; Z68.39 Body mass index [BMI] 39.0-39.9, adult
CPT/HCPCS: 36415; 71045; 80048; 81001; 83605; 83735; 85025; 93005; 96365; 96375; J0696; J1100; J1650; J2405; J7050

== ENCOUNTER 2020-07-22 07:41 | Outpatient (CLI) | payer OTHER | END 2020-07-22 07:42 | disposition home or self-care (01) | LOC: BICMAMMO 07:41 | PROVIDERS: ATTEND Family Medicine | DX: Z12.31 Encounter for screening mammogram for malignant neoplasm of breast (principal) | CPT/HCPCS: 77063; 77067 ==

== ENCOUNTER 2021-08-11 15:35 | Emergency (ER) | payer SELFPAY | END 2021-08-11 17:34 | disposition home or self-care (01) | LOC: ERS 15:35 | DX: M25.561 Pain in right knee (principal); I10 Essential (primary) hypertension; E78.5 Hyperlipidemia, unspecified ==

== ENCOUNTER 2021-12-16 04:13 | Emergency (ER) | payer BC, SELFPAY ==
[2021-12-16] MEDS ORDERED: Acetaminophen 500 MG TAB ONE (04:30)
[2021-12-16] MEDS ORDERED: Ketorolac Tromethamine 30 MG/ML VIAL ONE (04:42)
[2021-12-16 06:40] LABS: SARS-CoV-2 NAA Rapid Test DETECTED (NotDetected)
== END 2021-12-16 06:48 | disposition home or self-care (01) ==
LOC: ERS 04:13
DX: U07.1 COVID-19 (principal); E78.5 Hyperlipidemia, unspecified; I10 Essential (primary) hypertension; Z79.899 Other long term (current) drug therapy
CPT/HCPCS: 96372; 99283; J1885; U0002

== ENCOUNTER 2022-06-26 17:35 | Emergency (ER) | payer BC | END 2022-06-26 18:20 | disposition home or self-care (01) | LOC: ERS 17:35 | DX: J20.9 Acute bronchitis, unspecified (principal); E78.5 Hyperlipidemia, unspecified; I10 Essential (primary) hypertension; E11.9 Type 2 diabetes mellitus without complications; Z20.822 Contact with and (suspected) exposure to COVID-19 | CPT/HCPCS: 71045; U0003; U0005 ==

== ENCOUNTER 2022-11-24 12:24 | Outpatient (CLI) | payer BC | END 2022-11-24 12:25 | disposition home or self-care (01) | LOC: BICMAMMO 12:24 | PROVIDERS: ATTEND Family Medicine | DX: Z12.31 Encounter for screening mammogram for malignant neoplasm of breast (principal) | CPT/HCPCS: 77063; 77067 ==

== ENCOUNTER 2022-12-06 20:22 | Emergency (ER) | payer BC ==
[2022-12-06] MEDS ORDERED: Ketorolac Tromethamine 30 MG/ML VIAL ONE (22:26)
== END 2022-12-06 22:46 | disposition home or self-care (01) ==
LOC: ERS 20:22
DX: M54.41 Lumbago with sciatica, right side (principal); I10 Essential (primary) hypertension; E11.9 Type 2 diabetes mellitus without complications; E78.5 Hyperlipidemia, unspecified; Z79.899 Other long term (current) drug therapy
CPT/HCPCS: 96372; 99283; J1885

== ENCOUNTER 2022-12-15 18:24 | Emergency (ER) | payer BC, OTHER ==
[2022-12-15] MEDS ORDERED: Acetaminophen 500 MG TAB ONE (19:52)
[2022-12-15] MEDS ORDERED: Cyclobenzaprine 10 MG TAB ONE (19:52)
== END 2022-12-15 21:51 | disposition home or self-care (01) ==
LOC: ERS 18:24
DX: M54.2 Cervicalgia (principal); M62.838 Other muscle spasm; E78.5 Hyperlipidemia, unspecified; I10 Essential (primary) hypertension; E11.9 Type 2 diabetes mellitus without complications; V89.2XXA Person injured in unspecified motor-vehicle accident, traffic, initial encounter
CPT/HCPCS: 72125

== ENCOUNTER 2023-02-16 09:14 | Emergency (ER) | payer BC ==
[2023-02-16 10:35] LABS: SARS-CoV-2 NAA Rapid Test Not Detected (NotDetected)
== END 2023-02-16 10:43 | disposition home or self-care (01) ==
LOC: ERS 09:14
DX: B34.9 Viral infection, unspecified (principal); R05.9 Cough, unspecified; R09.81 Nasal congestion; I10 Essential (primary) hypertension; E78.5 Hyperlipidemia, unspecified; E11.9 Type 2 diabetes mellitus without complications; Z79.899 Other long term (current) drug therapy; Z20.822 Contact with and (suspected) exposure to COVID-19
CPT/HCPCS: 71046

== ENCOUNTER 2024-01-11 07:30 | Outpatient (CLI) | payer BC | END 2024-01-11 07:31 | disposition home or self-care (01) | LOC: BICMAMMO 07:30 | PROVIDERS: ATTEND Family Medicine | DX: Z12.31 Encounter for screening mammogram for malignant neoplasm of breast (principal) | CPT/HCPCS: 77067 ==